=== PATIENT | male | born 1960 | race African-American/Black ===

== ENCOUNTER 2019-01-15 00:35 | Emergency (ER) | payer OTHER ==
[~2019-01-15] VITALS: Ht 167.6 cm; Wt 90.9 kg
[~2019-01-15 00:35] MED LIST: ACCU-CHEK; AMLODIPINE10 MG PO; ASPIRIN EC81 MG PO; BENADRYL 25MG C25 MG PO; CLONIDINE0.1 MG PO; HALDOL1 M1 PO; LISINOPRIL20 MG PO; METOPROL TAR25 MG PO; NEPHROCAPS QT PO; NOVOLIN N100 UNIT/M SC; OMEPRAZOLE10 MG PO; VITAMIN D5000 UNIT PO
[2019-01-15] MEDS ORDERED: CINACALCET HYDR30 MG PO (00:46)
[2019-01-15] MEDS ORDERED: HUMALOG100 UNIT/M SC (00:48)
[2019-01-15] MEDS ORDERED: ZESTRIL10 M1 PO (00:49)
[2019-01-15] MEDS ORDERED: RENAGEL 800MG800 MG PO (00:51)
[2019-01-15] MEDS ORDERED: [UNRECOGNIZED DRUG - OTHER] PO (00:52)
[2019-01-15 01:20] VITALS: BP 159/76
== END 2019-01-15 01:20 | disposition designated cancer center or children's hospital (05) | DRG 316 ==
LOC: ED 00:35
DX: T82.838A Hemorrhage due to vascular prosthetic devices, implants and grafts, initial encounter (principal)

== ENCOUNTER 2021-12-27 12:43 | Inpatient (IN) | payer OTHER ==
[2021-12-27] VITALS (19 sets, daily range): BP systolic 150–165; BP diastolic 65–84
[~2021-12-27] VITALS: Ht 170.2 cm; Wt 89.9 kg
[~2021-12-27 12:43] MED LIST changes: +CINACALCET HYDR30 MG PO; +CIPROFLOXACN500 MG PO; +HUMALOG100 UNIT/M SC; +RENAGEL 800MG800 MG PO; +ZESTRIL10 M1 PO; +[UNRECOGNIZED DRUG - OTHER] PO
[2021-12-27] MEDS ORDERED: HUMULIN R500 UNIT/1 ×2 (13:02→22:50)
[2021-12-27] MEDS ORDERED: NORVASC5 M1 PO ×2 (13:04→22:53)
[2021-12-27] MEDS ORDERED: METOPROL TAR25 MG PO ×2 (13:04→13:05)
[2021-12-27] MEDS ORDERED: ASPIRIN81 MG PO (13:06)
[2021-12-27] MEDS ORDERED: B COMPLEX-1 PO (13:06)
[2021-12-27] MEDS ORDERED: CIPROFLOXACN500 MG PO (13:09)
[2021-12-27] MEDS ORDERED: CINACALCET HYDR30 MG PO (13:09)
[2021-12-27] MEDS ORDERED: HUMULIN N100 UNIT/M SC (13:10)
[2021-12-27] MEDS ORDERED: LISINOPRIL10 MG PO ×2 (13:11→23:04)
[2021-12-27] MEDS ORDERED: ZEPATIER PO ×2 (13:12→22:55)
[2021-12-27] MEDS ORDERED: OMEPRAZOLE20 MG PO (13:13)
[2021-12-27] MEDS ORDERED: ONDANSETRON4 MG PO (13:13)
[2021-12-27 13:25] LABS: HEMATOCRIT 27.6 % (39.0-50.0); HEMOGLOBIN 8.5 g/dl (14.0-18.0); IMMATURE GRANULOCYTES 0.8 % (0.0-5.0); MEAN CORPUSCULAR HGB 28.3 pG CALC (26.0-32.0); MEAN CORPUSCULAR HGB CONC 30.8 g/dL CAL (32.0-36.0); NEUT# 4.37 thou/uL (1.82-7.42); RED CELL DISTRI WIDTH 16.1 % (11.5-15.5)
[2021-12-27 13:41] LABS: ALBUMIN 3.7 g/dL (3.2-5.0); BILIRUBIN, TOTAL 0.9 mg/dL (0.0-1.4); CREATININE 4.5 mg/dL (0.7-1.3); POTASSIUM 5.3 mmol/l (3.5-5.1); TOTAL PROTEIN 7.4 g/dL (6.3-8.2)
[2021-12-27] MEDS ORDERED: HUMULIN 70/30 SC (22:43)
[2021-12-27] MEDS ORDERED: ONDANSETRON ODT8 MG PO (22:47)
[2021-12-27] MEDS ORDERED: ASPIRIN/ENTERIC81 MG PO (23:03)
[2021-12-27] MEDS ORDERED: VIT PO (23:13)
[2021-12-27] MEDS ORDERED: SUPER B COMPLEX PO (23:13)
[2021-12-28 00:10] VITALS: BP 178/78
[2021-12-28 03:54] VITALS: BP 172/75
[2021-12-28 05:38] LABS: ALBUMIN 3.7 g/dL (3.2-5.0); BUN 14 mg/dL (8-23); CARBON DIOXIDE 36 mmol/l (22-30); CHLORIDE 96 mmol/l (95-108); CREATININE 3.7 mg/dL (0.7-1.3); GFR FOR AFR.AMER. 20 ML/MIN (>=60 (CALC)); GFR OTHER RACES 17 ML/MIN (>=60 (CALC)); SODIUM 138 mmol/l (137-146)
[2021-12-28 05:44] LABS: POTASSIUM 4.2 mmol/l (3.5-5.1)
[2021-12-28 07:01] VITALS: BP 156/67
[2021-12-28 10:30] VITALS: BP 152/64
[2021-12-28 19:09] VITALS: BP 138/60
[2021-12-28 23:32] VITALS: BP 145/61
[2021-12-29 04:23] VITALS: BP 157/77
[2021-12-29 05:42] LABS: HEMATOCRIT 28.9 % (39.0-50.0); HEMOGLOBIN 8.8 g/dl (14.0-18.0); IMMATURE GRANULOCYTES 2.1 % (0.0-5.0); MEAN CELL VOLUME 91.5 fL CALC (80.0-100.0); MEAN CORPUSCULAR HGB 27.8 pG CALC (26.0-32.0); MEAN CORPUSCULAR HGB CONC 30.4 g/dL CAL (32.0-36.0); NEUT# 3.13 thou/uL (1.82-7.42); RED BLOOD COUNT 3.16 mill/uL (4.70-6.10); RED CELL DISTRI WIDTH 15.9 % (11.5-15.5)
[2021-12-29 06:18] LABS: ALBUMIN 3.3 g/dL (3.2-5.0); BILIRUBIN, TOTAL 0.8 mg/dL (0.0-1.4); CREATININE 4.4 mg/dL (0.7-1.3); TOTAL PROTEIN 6.7 g/dL (6.3-8.2)
[2021-12-29 06:20] LABS: POTASSIUM 4.9 mmol/l (3.5-5.1)
[2021-12-29 06:29] VITALS: BP 121/70
[2021-12-29 10:00] VITALS: BP 156/72
== END 2021-12-29 15:44 | disposition designated cancer center or children's hospital (05) | DRG 682 ==
LOC: ED 12:43 → ED-I 13:58 → ED 13:58 → ED-I 14:10 → ED 14:29 → MS2 14:30
PROVIDERS: Emergency Medicine; Internal Medicine Nephrology; Nurse Practitioner Family; ADMIT Internal Medicine; ATTEND Internal Medicine
PROC: 5A1D70Z Performance of Urinary Filtration, Intermittent, Less than 6 Hours Per Day (ICD-10-PCS; principal; 2021-12-27)
PROC: 5A1D70Z Performance of Urinary Filtration, Intermittent, Less than 6 Hours Per Day (ICD-10-PCS; 2021-12-28)
PROC: 5A1D70Z Performance of Urinary Filtration, Intermittent, Less than 6 Hours Per Day (ICD-10-PCS; 2021-12-29)
DX: I12.0 Hypertensive chronic kidney disease with stage 5 chronic kidney disease or end stage renal disease (principal); J96.01 Acute respiratory failure with hypoxia; N18.6 End stage renal disease; N25.81 Secondary hyperparathyroidism of renal origin; Z99.2 Dependence on renal dialysis; E11.22 Type 2 diabetes mellitus with diabetic chronic kidney disease; D63.1 Anemia in chronic kidney disease; E87.5 Hyperkalemia; F03.90 Unspecified dementia, unspecified severity, without behavioral disturbance, psychotic disturbance, mood disturbance, and anxiety; E11.40 Type 2 diabetes mellitus with diabetic neuropathy, unspecified; F65.9 Paraphilia, unspecified; Z79.4 Long term (current) use of insulin
CPT/HCPCS: J1644; Q5106 EC

== ENCOUNTER 2022-04-03 12:17 | Inpatient (IN) | payer OTHER ==
[~2022-04-03] VITALS: Ht 170.2 cm; Wt 79.8 kg
[~2022-04-03 12:17] MED LIST changes: +ASPIRIN/ENTERIC81 MG PO; +ASPIRIN81 MG PO; +B COMPLEX-1 PO; +HUMULIN 70/30 SC; +HUMULIN N100 UNIT/M SC; +HUMULIN R500 UNIT/1; +LISINOPRIL10 MG PO; +NORVASC5 M1 PO; +OMEPRAZOLE20 MG PO; +ONDANSETRON ODT8 MG PO; +ONDANSETRON4 MG PO; +SUPER B COMPLEX PO; +VIT PO; +ZEPATIER PO
--- NOTE | 2022-04-03 12:38 | NUR ---
PATIENT TO ROOM 9
--- NOTE | 2022-04-03 12:40 | NUR ---
REPORT TO PRIMARY NURSE KIMBERLI HARRIS
[2022-04-03 13:54] LABS: BASO% 0.3 % (0-3); BILIRUBIN, TOTAL 0.9 mg/dL (0.2-1.3); EOS% 7.3 % (0-8); HEMATOCRIT 29.8 % (39.0-50.0); HEMOGLOBIN 9.4 g/dl (14.0-18.0); IMMATURE GRANULOCYTES 0.2 % (0.0-5.0); LYMPH% 7.3 % (15-41); MEAN CORPUSCULAR HGB 26.1 pG CALC (26.0-32.0); MEAN CORPUSCULAR HGB CONC 31.5 g/dL CAL (32.0-36.0); MONO% 8.9 % (2-13); NEUT# 7.03 thou/uL (1.82-7.42); RED BLOOD COUNT 3.6 mill/uL (4.70-6.10); RED CELL DISTRI WIDTH 19.8 % (11.5-15.5)
[2022-04-03 13:55] LABS: ALBUMIN 4.4 g/dL (3.2-5.0); TOTAL PROTEIN 8.9 g/dL (6.3-8.2)
[2022-04-03 13:56] LABS: CREATININE 7.1 mg/dL (0.7-1.3); MEAN CELL VOLUME 82.8 fL CALC (80.0-100.0)
[2022-04-03 15:49] VITALS: BP 184/71
--- NOTE | 2022-04-03 16:40 | NUR ---
RECEIVED PATIENT FROM ER. ALERT AND ORIENTED WITH SOB.
--- NOTE | 2022-04-03 16:40 | NUR ---
PATIENT SITTING IN THE RECLINER .NOT TOLERATING LYING IN THE BED.
[2022-04-03] MEDS ORDERED: RENVELA800 MG PO (16:57)
--- NOTE | 2022-04-03 19:15 | NUR ---
REPORT RECIEVED FROM OUTGOING SHIFT. PATIENT IN RECLINER. RESPIRATIONS EVEN AND UNLABORED. DENIES PAIN OR DISCOMFRT SISCUSSED PLAN OF CARE FOR DIALYSIS TONIGHT.
[2022-04-03 19:18] VITALS: BP 198/82
--- NOTE | 2022-04-03 23:00 | NUR ---
PT BROUGHT TO DIALYSIS TREATMENT ROOM FOR PRESCRIBED HEMODIALYSIS FROM ROOM 276 VIA WHEELCHAIR. ACCOMPANIED BY SUPERINTENDENT MEASUREMENT. HAND-OFF REPORT RECEIVED FROM PRIMARY NURSE Judy GONZALES RN. CARE OF PT ASSUMED AT THIS TIME.
--- NOTE | 2022-04-03 23:08 | NUR ---
HEMODIALYSIS TREATMENT INITIATED AT 2308. SEE HEMODIALYSIS TREATMENT PROCESS INTERVENTION AND TABLO TREATMENT FLOWSHEET FOR TREATMENT SPECIFIC DETAILS.
[2022-04-04] VITALS (8 sets, daily range): BP systolic 130–193; BP diastolic 56–90
--- NOTE | 2022-04-04 03:23 | NUR ---
HEMODIALYSIS TREATMENT COMPLETED AT 0323. SEE HEMODIALYSIS TREATMENT PROCESS INTERVENTION AND TABLO TREATMENT FLOWSHEET FOR TREATMENT SPECIFIC DETAILS.
--- NOTE | 2022-04-04 03:32 | NUR ---
POST HEMODIALYSIS PT RETURNED TO ROOM 276 VIA WHEELCHAIR. ACCOMPANIED BY ENGINE REPAIRER SERVICE. HAND-OFF REPORT ENDORSED TO PRIMARY NURSE Judy GONZALES RN. CARE OF PT SURRENDERED AT THIS TIME.
--- NOTE | 2022-04-04 03:36 | NUR ---
RETURNED VIA WHEELCHAIR FROM DIALYSIS. POST DIALYSIS WEIGHT 83.6 KG. NEW IV STARTED BY DIALYSIS NURSE AT RIGHT AC. TOLERATED WELL. IV SITE HEALTHY.
--- NOTE | 2022-04-04 05:12 | NUR ---
TRANSFERRED FROM RECLINER CHAIR TO HOSPITAL BED WITHOUT DIFFICULTY IV SITE AT RIGHT ANTECUBITAL INTACT. PT DENIES PAIN OR DISCOMFORT SHACKLES APPLIED TO RIGHT ANKLE BY [facility] OFFICER. RESPIRATION EFFORT EVEN AND UNLABORED.
[2022-04-04 05:58] LABS: HEMATOCRIT 33.1 % (39.0-50.0); HEMOGLOBIN 10.3 g/dl (14.0-18.0); MEAN CELL VOLUME 82.8 fL CALC (80.0-100.0); MEAN CORPUSCULAR HGB 25.8 pG CALC (26.0-32.0); MEAN CORPUSCULAR HGB CONC 31.1 g/dL CAL (32.0-36.0); RED CELL DISTRI WIDTH 19.8 % (11.5-15.5)
[2022-04-04 06:35] LABS: ALBUMIN 4.8 g/dL (3.2-5.0); BILIRUBIN, TOTAL 1.1 mg/dL (0.2-1.3); MAGNESIUM 1.8 mg/dL (1.6-2.3); POTASSIUM 3.9 mmol/l (3.5-5.1); TOTAL PROTEIN 9.2 g/dL (6.3-8.2)
[2022-04-04 06:38] LABS: CREATININE 3.4 mg/dL (0.7-1.3)
--- NOTE | 2022-04-04 08:00 | NUR ---
PT SITTING UP IN BED WITH GUARDS AT BEDSIDE. PT IS AWAKE A&O X 3 WITH UNCLEAR SPEECH. PT HAS O2 @ 2 LITERS VIA NC. PT IS BEING TRANSFERRED TO W/C BY AIDE TO TRANSPORT TO U/S FOR THORACENTISIS.
--- NOTE | 2022-04-04 09:00 | NUR ---
PT RETURNED FROM THORACENTISIS WITH GUARDS AT SIDE, TRANSFERED FROM W/C TO CHAIR. PT A&O X3 BREAKFAST OFFERED. PT HAS NO C/O PAIN. O2 @2 L NC ON, IV TO RAC CLEAN, INTACT AND FLUSHING WELL. PT HAS CALL LIGHT WITHIN REACH
[2022-04-04 09:02] LABS: INTERNATIONAL NORMALIZED RATIO 1.3 RATIO (0.7-1.3); PROTHROMBIN TIME 13.2 SECONDS (9.0-12.5)
--- NOTE | 2022-04-04 10:11 | NUR ---
CALLED FACILITY TO PATIENT'S MEDICATION LIST TO VERIFY WHAT PATIENT IS CURRENTLY TAKING. NO ANSWER SO I LEFT VOICE MAIL FOR NURSE TO CALL ME BACK.
--- NOTE | 2022-04-04 12:00 | NUR ---
PT UP IN CHAIR, AWAKE AND ALERT WITH GUARD AT BEDSIDE. PT IS ON O2@2L NC. IV SITE INTACT AND CLEAN TO THE RIGHT AC. PT HAS NO C/O PAIN AT THIS TIME. CALL LIGHT WITHIN REACH.
--- NOTE | 2022-04-04 13:52 | NUR ---
02 3L NC 96% SAT
--- NOTE | 2022-04-04 14:35 | NUR ---
PT TRANSPORTED TO DIALYSIS A&O X 3 VIA W/C WITH PORTABLE O2 @ 4L NC
--- NOTE | 2022-04-04 14:35 | NUR ---
PT BROUGHT TO DIALYSIS TREATMENT ROOM FOR PRESCRIBED HEMODIALYSIS FROM ROOM 276 VIA WHEELCHAIR. ACCOMPANIED BY HAY STACKER OPERATOR. HAND-OFF REPORT RECEIVED FROM PRIMARY NURSE Ludin PACHECO RN. CARE OF PT ASSUMED AT THIS TIME.
--- NOTE | 2022-04-04 14:43 | NUR ---
HEMODIALYSIS TREATMENT INITIATED AT 1443. SEE HEMODIALYSIS TREATMENT PROCESS INTERVENTION AND TABLO TREATMENT FLOWSHEET FOR TREATMENT SPECIFIC DETAILS.
--- NOTE | 2022-04-04 16:02 | NUR ---
POST HEMODIALYSIS PT RETURNED TO ROOM 276 VIA WHEELCHAIR. ACCOMPANIED BY PLATING INSPECTOR. HAND-OFF REPORT ENDORSED TO PRIMARY NURSE Ludin PACHECO RN. CARE OF PT SURRENDERED AT THIS TIME.
--- NOTE | 2022-04-04 16:11 | NUR ---
PT IN DIALYSIS
--- NOTE | 2022-04-04 17:56 | NUR ---
HEMODIALYSIS TREATMENT COMPLETED AT 1756. SEE HEMODIALYSIS TREATMENT PROCESS INTERVENTION AND TABLO TREATMENT FLOWSHEET FOR TREATMENT SPECIFIC DETAILS.
--- NOTE | 2022-04-04 20:00 | NUR ---
PATIENT SITTING IN THE RECLINER. NO FURTHER COMPLAINT. B/P STABLE.
--- NOTE | 2022-04-05 01:18 | NUR ---
PATIENT SLEEPING IN THE RECLINER. NO S/S OF DISTRESS NOTED. REMAIN ON 2L NC.
[2022-04-05 04:03] VITALS: BP 154/68
--- NOTE | 2022-04-05 04:10 | NUR ---
pt stated to staff. pt doesnt urinate due to being a dialysis pt. principal technical writer informed nurse.
[2022-04-05 06:34] LABS: BUN 28 mg/dL (8-23); CARBON DIOXIDE 30 mmol/l (22-30); CHLORIDE 93 mmol/l (95-108); CREATININE 3.9 mg/dL (0.7-1.3); GFR FOR AFR.AMER. 19 ML/MIN (>=60 (CALC)); GFR OTHER RACES 16 ML/MIN (>=60 (CALC)); POTASSIUM 4.4 mmol/l (3.5-5.1); SODIUM 133 mmol/l (137-146)
[2022-04-05 06:35] LABS: ALBUMIN 3.8 g/dL (3.2-5.0)
[2022-04-05 07:00] VITALS: BP 148/66
--- NOTE | 2022-04-05 07:40 | NUR ---
PT RESTING COMFORTABLY. VITAL SIGNS STABLE. PT ON 2L. 2 [facility] OFFICERS IN ROOM. NO NEEDS AT THIS TIME.
[2022-04-05] MEDS ORDERED: MEDDOSEPAK PO (11:10)
[2022-04-05 11:56] VITALS: BP 127/56
--- NOTE | 2022-04-05 13:45 | NUR ---
PT BROUGHT TO DIALYSIS TREATMENT ROOM FOR PRESCRIBED HEMODIALYSIS FROM ROOM 276 VIA WHEELCHAIR. ACCOMPANIED BY APPLICATION PACKAGING SPECIALIST. HAND-OFF REPORT RECEIVED FROM PRIMARY NURSE Natasha TURNER RN. CARE OF PT ASSUMED AT THIS TIME.
[2022-04-05 13:53] VITALS: BP 161/77
--- NOTE | 2022-04-05 13:53 | NUR ---
HEMODIALYSIS TREATMENT INITIATED AT 1353. SEE HEMODIALYSIS TREATMENT PROCESS INTERVENTION AND TABLO TREATMENT FLOWSHEET FOR TREATMENT SPECIFIC DETAILS.
--- NOTE | 2022-04-05 16:20 | NUR ---
PT AT DIALYSIS
--- NOTE | 2022-04-05 17:38 | NUR ---
HEMODIALYSIS TREATMENT COMPLETED AT 1738. SEE HEMODIALYSIS TREATMENT PROCESS INTERVENTION AND TABLO TREATMENT FLOWSHEET FOR TREATMENT SPECIFIC DETAILS.
--- NOTE | 2022-04-05 17:45 | NUR ---
POST HEMODIALYSIS PT RETURNED TO ROOM 276 VIA WHEELCHAIR. ACCOMPANIED BY SENIOR SOFTWARE QUALITY ENGINEER. HAND-OFF REPORT ENDORSED TO PRIMARY NURSE Natasha TURNER RN. CARE OF PT SURRENDERED AT THIS TIME.
--- NOTE | 2022-04-05 18:39 | NUR ---
DC INSTRUCTIONS GIVEN. MEDICATION INSTRUCTIONS GIVEN. IV DCED. TELE DCED. PT TAKEN TO VAN IN BY ME. PT DCED TO [facility] WITH OFFICERS.
== END 2022-04-05 18:35 | disposition designated cancer center or children's hospital (05) | DRG 682 ==
LOC: ED 12:17 → ED-I 14:00 → ED 14:49 → MS2 14:50
PROVIDERS: Emergency Medicine; Internal Medicine Nephrology; Nurse Practitioner Adult Health; ADMIT Internal Medicine; ATTEND Internal Medicine
PROC: 5A1D70Z Performance of Urinary Filtration, Intermittent, Less than 6 Hours Per Day (ICD-10-PCS; principal; 2022-04-03)
PROC: 5A1D70Z Performance of Urinary Filtration, Intermittent, Less than 6 Hours Per Day (ICD-10-PCS; 2022-04-04)
PROC: 0W993ZZ Drainage of Right Pleural Cavity, Percutaneous Approach (ICD-10-PCS; 2022-04-04)
PROC: 5A1D70Z Performance of Urinary Filtration, Intermittent, Less than 6 Hours Per Day (ICD-10-PCS; 2022-04-05)
DX: I12.0 Hypertensive chronic kidney disease with stage 5 chronic kidney disease or end stage renal disease (principal); J96.01 Acute respiratory failure with hypoxia; N18.6 End stage renal disease; N25.81 Secondary hyperparathyroidism of renal origin; J91.8 Pleural effusion in other conditions classified elsewhere; E11.22 Type 2 diabetes mellitus with diabetic chronic kidney disease; D63.1 Anemia in chronic kidney disease; E11.40 Type 2 diabetes mellitus with diabetic neuropathy, unspecified; B19.20 Unspecified viral hepatitis C without hepatic coma; F65.9 Paraphilia, unspecified; F03.90 Unspecified dementia, unspecified severity, without behavioral disturbance, psychotic disturbance, mood disturbance, and anxiety; Z99.2 Dependence on renal dialysis; Z79.4 Long term (current) use of insulin; Z99.81 Dependence on supplemental oxygen
CPT/HCPCS: J1644